=== PATIENT | male | born 1935 | race Caucasian/White ===

== ENCOUNTER 2018-07-06 15:57 | Observation (INO) | payer MEDICARE ==
[2018-07-06] MEDS ORDERED: Sodium Chloride 0.9% 1000 ML 1,000 ML IV SCH ×2 (16:45→18:28)
--- NOTE | 2018-07-06 16:45 | ERPHSYRPT ---
- History of Present Illness Time Seen by Provider: 07/06/18 16:30 Source: patient, family Exam Limitations: clinical condition Patient Subjective Stated Complaint: PT states "I was trying to get my truck to start but I cannot remember why.". Pt daughter in law states "He was in his garage with his truck running and the door closed. He was supposed to go see Dr. Marrero at 2 pm and he did not make it to it. He does have a little dementia. He has had a stroke in the past and he is off his coumadin due to a procedure he had in [facility]. He was perfectly fine last night." Triage Nursing Assessment: Pt last seen his normal self at 2100 last night. Pt alert and confused, able to speak in clear full sentences. PT in no apparent respiratory distress noted. Pt has intermittant forceful cough. Physician History: This is an 83-year-old white male with history of CVA, myocardial infarction, cataracts, coronary artery disease, hyperlipidemia, high blood pressure, esophageal erosions, esophageal cancer, Patient is brought by his of son with complaints that the patient was found in his garage with his truck running he had been there for unknown period of time family feel like the patient is confused. Patient has states apparently that he could not get his garage door opened and family are unsure as to how long the patient was in his garage. On my examination patient appears to be somewhat pleasantly confused he is alert he is oriented to himself. He is not oriented to place or time. He has full range of motion to all extremities speech is normal there are no obvious focal deficits. Past medical history includes myocardial infarction, CVA, cataracts, coronary artery disease, hyperlipidemia, high blood pressure, esophageal erosion, esophageal cancer. Past surgical history includes carotid endarterectomy, cardiac stent, cardiac catheter, mastectomy, tonsillectomy and adenoidectomy, and appendectomy Social history former smoker one to 2 alcoholic beverages a day. last time patient was noted to be normal 9:00 last night. Timing/Duration: today Severity: moderate Modifying Factors: Improves With: other (patient in garage with truck running) Associated Symptoms: other (Confusion), No nausea, No vomiting, No abdominal pain, No shortness of breath, No heartburn, No diaphoresis, No cough, No chills , No chest pain, No fever, No headaches, No loss of appetite, No malaise, No rash, No syncope, No seizure, No weakness Allergies/Adverse Reactions: No Known Drug Allergies Allergy (Verified 11/11/13 11:03) Home Medications: Aspirin 81 gm Chew [Baby Aspirin 81 mg Chew] 81 mg PO DAILY 09/10/13 [ History] Clopidogrel Bisulfate 75 mg [PLAVIX 75 MG Tablet] 75 mg PO DAILY 09/10/13 [History] Simvastatin [Zocor] 20 mg PO DAILY 09/10/13 [History] Tamsulosin HCl 0.4 mg [Flomax 0.4 MG] 0.4 mg PO DAILY 11/11/13 [History] Amlodipine Besylate 10 mg PO BID 07/06/18 [History] Omeprazole 40 mg PO DAILY 07/06/18 [History] Hx Tetanus, Diphtheria Vaccination/Date Given: No Hx Influenza Vaccination/Date Given: Yes Hx Pneumococcal Vaccination/Date Given: No Immunizations Up to Date: Yes - Review of Systems Constitutional: No Fever, No Chills Eyes: No Symptoms Ears, Nose, & Throat: No Symptoms Respiratory: No Cough, No Dyspnea Cardiac: No Chest Pain, No Edema, No Syncope Abdominal/Gastrointestinal: No Abdominal Pain, No Nausea, No Vomiting, No Diarrhea Genitourinary Symptoms: No Dysuria Musculoskeletal: No Back Pain, No Neck Pain Skin: No Rash Neurological: Other (confusion), No Dizziness, No Focal Weakness, No Gait Changes, No Headache, No Irritability, No Lethargy, No Paralysis, No Parasthesia , No Seizure, No Sensory Changes, No Speech Changes, No Tics, No Tremors, No Vertigo Psychological: No Symptoms Endocrine: No Symptoms All Other Systems: Reviewed and Negative - Past Medical History Pertinent Past Medical History: Yes Neurological History: Stroke ENT History: Cataracts Cardiac History: Coronary Artery Disease, High Cholesterol, Hypertension Respiratory History: No Pertinent History Endocrine Medical History: No Pertinent History Musculoskeletal History: No Pertinent History GI Medical History: No Pertinent History History: No Pertinent History Psycho-Social History: No Pertinent History Male Reproductive Disorders: No Pertinent History Other Medical History: esophogeal erosion. esophogeal cancer - Past Surgical History Past Surgical History: Yes Neuro Surgical History: Neurological Surgery Cardiac: Cardiac Catheterization, Cardiac Stent Respiratory: No Pertinent History Gastrointestinal: No Pertinent History Genitourinary: No Pertinent History Musculoskeletal: No Pertinent History Male Surgical History: Vasectomy Other Surgical History: T&A as a child, stroke in 2006,colonoscopy. egd - Social History Smoking Status: Former smoker Exposure to second hand smoke: Yes Drug Use: none Patient Lives Alone: No - Nursing Vital Signs Nursing Vital Signs: Initial Vital Signs Temperature 99.7 F 07/06/18 16:09 Pulse Rate 79 07/06/18 16:09 Respiratory Rate 18 07/06/18 16:09 Blood Pressure 160/114 07/06/18 16:09 O2 Sat by Pulse Oximetry 97 07/06/18 16:09 Pain Scale Pain Intensity 0 - Physical Exam General Appearance: no apparent distress, alert Eye Exam: PERRL/EOMI, eyes nml inspection, other (fundi are unremarkable) Neck Exam: normal inspection, non-tender, supple, full range of motion Respiratory Exam: normal breath sounds, lungs clear, No respiratory distress Cardiovascular Exam: regular rate/rhythm, normal heart sounds, normal peripheral pulses, capillary refill <2 sec Gastrointestinal/Abdomen Exam: soft, normal bowel sounds, No tenderness, No mass Back Exam: normal inspection Extremity Exam: normal inspection, normal range of motion, pelvis stable Neurologic Exam: alert, cooperative, steel heater II-XII nml as tested, sensation nml, confusion, other (patient is alert, oriented to himself, cranial nerves II throughXII intact, speech normal, automotive instructor equal 5 over 5 normal finger to nose with mild tremor no drift, no facial droop full range of motion to all extremities sensation intact all extremities, GCS equals 15), No oriented x 3 ( oriented to person), No sensory deficit, No agitation, No uncooperative, No intoxicated appearance, No depressed mood/affect, No motor weakness, No facial droop, No slurred speech, No aphasia, No dysarthria, No abnormal steel heater II-XII Skin Exam: normal color, warm, dry, No rash SpO2 Interpretation: normal (97%) SpO2: 97 - Course Nursing assessment & vital signs reviewed: Yes EKG Interpreted by Me: RATE (101 bpm), Sinus Rhythm, Other (EKG: Impression: Sinus tachycardia 101 bpmS< AXISI/QIII pattern, no acute ST or T wave changes noted, compared to October 19, 2013) - Radiology Exams Chest X-ray Interpretation: Discussed w/ radiologist (chest x-ray: Impression: Stable nonacute chest with chronic features) - CT Exams Head CT Interpretation: Discussed w/radiologist (CT head: Impression: 1. New finding remote-appearing left cerebellar infarct and remote left thalamic lacunar infarct. 2. Stable atrophy, degenerative microvascular ischemia, an old left parietal infarct, 3. No acute intra-cranial abnormalities. 4. Incidental paranasal sinus disease.) Ordered Tests: Active Orders 24 hr Category Date Time Status Head Baker STAT Care 07/06/18 16:38 Active EKG-ER Only STAT Care 07/06/18 16:38 Active IV Insertion STAT Care 07/06/18 16:38 Active Pulse Oximetry (ED) STAT Care 07/06/18 16:38 Active CHEST 1 VIEW (PORTABLE) Stat Exams 07/06/18 16:38 Completed HEAD WITHOUT CONTRAST [CT] Stat Exams 07/06/18 16:38 Completed CBC W DIFF Stat Lab 07/06/18 16:30 Completed CMP Stat Lab 07/06/18 16:30 Completed CULTURE,URINE Stat Lab 07/06/18 17:39 Received ETHYL ALCOHOL Stat Lab 07/06/18 18:06 Ordered PROTIME WITH INR Stat Lab 07/06/18 16:30 Completed PTT Stat Lab 07/06/18 16:30 Completed TROPONIN Q3H Lab 07/06/18 16:30 Completed TROPONIN Q3H Lab 07/06/18 19:45 Ordered TROPONIN Q3H Lab 07/06/18 22:45 Ordered TROPONIN Q3H Lab 07/07/18 01:45 Ordered TROPONIN Q3H Lab 07/07/18 04:45 Ordered UA W/RFX UR CULTURE Stat Lab 07/06/18 17:39 Completed VENOUS BLOOD GAS Urgent Lab 07/06/18 16:38 Completed Medication Summary Generic Name Dose Route Start Last Admin Trade Name Freq PRN Reason Stop Dose Admin Sodium Chloride 1,000 mls @ 100 mls/hr 07/06/18 16:45 07/06/18 16:55 Sodium Chloride 0.9% 1000 Ml IV 08/05/18 16:44 100 mls/hr .Q10H JOANNA Administration Lab/Rad Data: Laboratory Result Diagrams 07/06/18 16:30 07/06/18 16:30 Laboratory Results 03/11/19 03/11/19 03/11/19 Range/Units 17:39 16:38 16:30 WBC (4.0-10.5) K/mm3 RBC (4.1-5.6) M/mm3 Hgb (12.5-18.0) gm/dl Hct (42-50) % MCV (78-100) fl MCH (26-32) pg MCHC (32-36) g/dl RDW (11.5-14.0) % Plt Count (150-450) K/mm3 MPV (6-9.5) fl Gran % (36.0-66.0) % Eos # (Auto) (0-0.5) Absolute Lymphs (auto) (1.0-4.6) Absolute Monos (auto) (0.0-1.3) Lymphocytes % (24.0-44.0) % Monocytes % (0.0-12.0) % Eosinophils % (0.00-5.0) % Basophils % (0.0-0.4) % Absolute Granulocytes (1.4-6.9) Basophils # (0-0.4) PT (8.83-12.87) SECONDS INR (0.8-3.0) APTT (24.1-36.1) SECONDS pO2/FiO2 Ratio 21.0 % VBG pH 7.37 (7.32-7.42) VBG pCO2 at Pat Temp 56 H (42-55) mm/Hg VBG pO2 at Pat Temp 23 L (25-40) mm/Hg VBG HCO3 32.4 H* (22-28) meq/L VBG O2 Sat (Greg) 48.0 L (95-100) VBG Base Excess 5.1 H (-2.0-2.0) VBG Hemoglobin 16.6 VBG Carboxyhemoglobin 4.0 (0.0-6.9) % T HGB POC Potassium 3.9 (3.5-5.1) Sodium (137-145) mmol/L Potassium (3.5-5.1) mmol/L Chloride (98-107) mmol/L Carbon Dioxide (22-30) mmol/L Anion Gap (5-15) MEQ/L BUN (9-20) mg/dL Creatinine (0.66-1.25) mg/dL Estimated GFR ML/MIN Glucose (74-106) mg/dL Calcium (8.4-10.2) mg/dL Total Bilirubin (0.2-1.3) mg/dL AST (17-59) U/L ALT (0-50) U/L Alkaline Phosphatase (38-126) U/L Troponin I < 0.012 (0.000-0.034) ng/mL Serum Total Protein (6.3-8.2) g/dL Albumin (3.5-5.0) g/dL Urine Color YELLOW (YELLOW) Urine Appearance CLEAR (CLEAR) Urine pH 7.0 (5-6) Ur Specific Whitney 1.016 (1.005-1.025) Urine Protein 30 (Negative) Urine Ketones NEGATIVE (NEGATIVE) Urine Blood SMALL (0-5) Travis/ul Urine Nitrite NEGATIVE (NEGATIVE) Urine Bilirubin NEGATIVE (NEGATIVE) Urine Urobilinogen NEGATIVE (0-1) mg/dL Ur Leukocyte Esterase NEGATIVE (NEGATIVE) Urine WBC (Auto) NONE (0-5) /HPF Urine RBC (Auto) 3-5 (0-2) /HPF U Epithel Cells (Auto) NONE (FEW) /HPF Urine Bacteria (Auto) NONE (NEGATIVE) /HPF Urine Mucus (Auto) SLIGHT (NEGATIVE) /HPF Urine Culture Reflexed YES (NO) Urine Glucose NEGATIVE (NEGATIVE) mg/dL 07/06/18 07/06/18 07/06/18 Range/Units 16:30 16:30 16:30 WBC 12.2 H (4.0-10.5) K/mm3 RBC 5.24 (4.1-5.6) M/mm3 Hgb 15.5 (12.5-18.0) gm/dl Hct 47.5 (42-50) % MCV 90.6 (78-100) fl MCH 29.6 (26-32) pg MCHC 32.6 (32-36) g/dl RDW 14.6 H (11.5-14.0) % Plt Count 155 (150-450) K/mm3 MPV 11.7 H (6-9.5) fl Gran % 86.9 H (36.0-66.0) % Eos # (Auto) 0.08 (0-0.5) Absolute Lymphs (auto) 0.77 L (1.0-4.6) Absolute Monos (auto) 0.74 (0.0-1.3) Lymphocytes % 6.3 L (24.0-44.0) % Monocytes % 6.0 (0.0-12.0) % Eosinophils % 0.7 (0.00-5.0) % Basophils % 0.1 (0.0-0.4) % Absolute Granulocytes 10.64 H (1.4-6.9) Basophils # 0.01 (0-0.4) PT 12.1 (8.83-12.87) SECONDS INR 1.04 (0.8-3.0) APTT 29.5 (24.1-36.1) SECONDS pO2/FiO2 Ratio % VBG pH (7.32-7.42) VBG pCO2 at Pat Temp (42-55) mm/Hg VBG pO2 at Pat Temp (25-40) mm/Hg VBG HCO3 (22-28) meq/L VBG O2 Sat (Greg) (95-100) VBG Base Excess (-2.0-2.0) VBG Hemoglobin VBG Carboxyhemoglobin (0.0-6.9) % T HGB POC Potassium (3.5-5.1) Sodium 142 (137-145) mmol/L Potassium 3.9 (3.5-5.1) mmol/L Chloride 101 (98-107) mmol/L Carbon Dioxide 30 (22-30) mmol/L Anion Gap 14.7 (5-15) MEQ/L BUN 20 (9-20) mg/dL Creatinine 0.92 (0.66-1.25) mg/dL Estimated GFR > 60.0 ML/MIN Glucose 106 (74-106) mg/dL Calcium 9.6 (8.4-10.2) mg/dL Total Bilirubin 1.00 (0.2-1.3) mg/dL AST 19 (17-59) U/L ALT 13 (0-50) U/L Alkaline Phosphatase 125 (38-126) U/L Troponin I (0.000-0.034) ng/mL Serum Total Protein 7.7 (6.3-8.2) g/dL Albumin 4.7 (3.5-5.0) g/dL Urine Color (YELLOW) Urine Appearance (CLEAR) Urine pH (5-6) Ur Specific Whitney (1.005-1.025) Urine Protein (Negative) Urine Ketones (NEGATIVE) Urine Blood (0-5) Travis/ul Urine Nitrite (NEGATIVE) Urine Bilirubin (NEGATIVE) Urine Urobilinogen (0-1) mg/dL Ur Leukocyte Esterase (NEGATIVE) Urine WBC (Auto) (0-5) /HPF Urine RBC (Auto) (0-2) /HPF U Epithel Cells (Auto) (FEW) /HPF Urine Bacteria (Auto) (NEGATIVE) /HPF Urine Mucus (Auto) (NEGATIVE) /HPF Urine Culture Reflexed (NO) Urine Glucose (NEGATIVE) mg/dL - Progress Progress: improved Progress Note: 07/06/18 16:47 83-year-old white male with history of CVA, myocardial infarction, cataracts, coronary artery disease, hyperlipidemia, high blood pressure, esophageal erosion , esophageal cancer He is brought by his family patient apparently was found in the garage with the garage door down in his truck running the patient apparently had been trying to get out possibly to go to a doctor's appointment but apparently could not get out of of the garage and apparently had been in the garage for unknown period of time with the motor running. The patient's family states that the patient seems to be somewhat confused he has somewhat of a poor memory and he replies and looking at them for answers to many questions he is not oriented to place he states he thinks he is in [place] he cannot tell me what month it is or what year it is. He does know who he is he is very pleasant and cooperative to examination. Neurologic examination memory as noted above patient has no facial droop, tongue does not deviate speech is normal. Patient has normal finger to nose with the exception of some tremor he does not have pronator drift. Face Boss are equal and symmetrical 5 over 5 he has full range of motion to all extremities sensation is intact to all extremities Hayward Coma Scale 14. I have ordered CT had CBC CMP troponin EKG also venous gases to rule out carbon monoxide poisoning. Patient is noted to have a mildly elevated blood pressure will monitor. 07/06/18 17:[address] of the head shows impression 1. New finding remote-appearing left cerebellar infarct and remarkable left for Lamictal lacunar infarct. 2. Stable atrophy, degenerative microvascular ischemia and old left parietal infarct. 3. No acute intracranial abnormalities. 4. Incidental paranasal sinus disease Patient's CBC white blood cell 12.2 hemoglobin 15.5 hematocrit 47.5 platelets 155 INR is 1.04 patient was taken off of his Coumadin yesterday for a procedure patient's venous gases show pH of 7.37 PCO2 56, carboxyhemoglobin 4.0 Chemistry sodium 142 potassium 3.9 chloride 101 bicarbonate 30 BUN 20 creatinine 0.92 glucose 106 Troponin is pending urine is pending EKG is pending Chest x-ray stable non-acute chest with chronic features. Patient did have mild increased blood pressure. I've discussed patient's case with Dr. Marrero he does not feel that patient needs telemetry neurology consult he feels that patient has some developing dementia. Will plan on placing patient on observation telemetry continuing troponins obtaining every 4 hours neuro checks Once urinalysis troponin and EKG are available. 07/06/18 18:06 The patient's urinalysis and troponin within normal limits EKG sinus tachycardia 94 bpm axisSI/QIII pattern no acute ST or T wave changes. Patient's blood pressure is coming down. Will go ahead and place patient on observation. Diagnosis 1. Mental status change. Confusion. Hypertension. Will avoid overtreating hypertension at this point to facilitate further observation and neuro checks. I have added on an alcohol level and this is pending. - Departure Time of Disposition: 18:09 Departure Disposition: Observation Clinical Impression: Confusion Change in mental status Qualifiers: Altered mental status type: unspecified Qualified Code(s): R41.82 - Altered mental status, unspecified Hypertension Qualifiers: Hypertension type: unspecified Qualified Code(s): I10 - Essential (primary) hypertension Condition: Fair Critical Care Time: No Referrals: IRON MARRERO [Primary Care Provider] -
[2018-07-06 16:47] LABS: VBG BASE EXCESS 5.1 (-2.0-2.0); VBG HCO3- 32.4 meq/L (22-28); VBG HEMOGLOBIN 16.6; VBG POTASSIUM 3.9 (3.5-5.1); VBG pH 7.37 (7.32-7.42)
[2018-07-06 16:47] LABS: BASOPHIL % 0.1 % (0.0-0.4); Basophil (Absolute #) 0.01 (0-0.4); Eosinophil % 0.7 % (0.00-5.0); Eosinophil (Absolute #) 0.08 (0-0.5); Granulocyte Absolute (ANC) 10.64 (1.4-6.9); Granulocytes % 86.9 % (36.0-66.0); Hematocrit 47.5 % (42-50); Hemoglobin 15.5 gm/dl (12.5-18.0); INR 1.04 (0.8-3.0); Lymphocyte (Absolute #) 0.77 (1.0-4.6); Lymphocytes % 6.3 % (24.0-44.0); Mean Cell Volume 90.6 fl (78-100); Mean Corpuscular Hemoglobin 29.6 pg (26-32); Mean Corpuscular Hgb Concent. 32.6 g/dl (32-36); Mean Platelet Volume 11.7 fl (6-9.5); Monocyte (Absolute #) 0.74 (0.0-1.3); PROTIME 12.1 SECONDS (8.83-12.87); Platelet Count 155 K/mm3 (150-450); Red Blood Count 5.24 M/mm3 (4.1-5.6); Red Cell Distribution Width 14.6 % (11.5-14.0); White Blood Count 12.2 K/mm3 (4.0-10.5)
[2018-07-06] MEDS ORDERED: Sodium Chloride 0.9% 1000 ML 1,000 ML ONE (16:47)
[2018-07-06 16:50] LABS: PTT 29.5 SECONDS (24.1-36.1)
[2018-07-06 16:52] LABS: ALBUMIN 4.7 g/dL (3.5-5.0); ALKALINE PHOSPHATASE 125 U/L (38-126); ANION GAP 14.7 MEQ/L (5-15); BLOOD UREA NITROGEN 20 mg/dL (9-20); CHLORIDE 101 mmol/L (98-107); Calcium 9.6 mg/dL (8.4-10.2); Carbon Dioxide 30 mmol/L (22-30); Creatinine 1 0.92 mg/dL (0.66-1.25); Glucose 106 mg/dL (74-106); Potassium 3.9 mmol/L (3.5-5.1); SGOT/AST 19 U/L (17-59); SGPT/ALT 13 U/L (0-50); SODIUM 142 mmol/L (137-145); Total Protein 7.7 g/dL (6.3-8.2)
--- NOTE | 2018-07-06 17:06 | XRAY ---
Indication: Cough. Confusion. Comparison: July 19, 2017. Portable chest remains clear with incidental CT proven right lung calcified pleural plaquing. Heart and mediastinal structures within normal limits. Descending aorta remains tortuous. Again focal eventration of the right hemidiaphragm. Bony thorax intact again with mild degenerative changes. Impression: Stable nonacute chest with chronic features.
--- NOTE | 2018-07-06 17:08 | XRAY ---
Indication: Confusion. History of stroke. Multiple contiguous axial images obtained through the head without contrast. Comparison: April 16, 2006. Stable age-appropriate global atrophy, mild periventricular degenerative microvascular ischemia bilaterally, and old left anterior parietal infarct. New finding remote appearing small left cerebellar infarct and remote left thalamic lacunar infarct. No acute intracranial hemorrhage, abnormal extra-axial fluid collection, or mass effect. Fourth ventricle is midline. Bony calvarium intact. Mild mucosal thickening of both ethmoid sinuses. Mastoid air cells are clear. Impression: 1. New finding remote appearing left cerebellar infarct and remote left thalamic lacunar infarct. 2. Stable atrophy, degenerative microvascular ischemia, and old left parietal infarct. 3. No acute intracranial abnormalities. 4. Incidental paranasal sinus disease. CTDI 69.79
[2018-07-06 17:49] LABS: Appearance CLEAR (CLEAR); Bilirubin NEGATIVE (NEGATIVE); Blood SMALL Ery/ul (0-5); Glucose NEGATIVE (NEGATIVE); Ketones NEGATIVE (NEGATIVE); Leukocyte Esterase NEGATIVE (NEGATIVE); Mucus SLIGHT /HPF (NEGATIVE); Nitrite NEGATIVE (NEGATIVE); Protein,Urine Dip 30 (Negative); Specific Gravity 1.016 (1.005-1.025); Urobilinogen NEGATIVE mg/dL (0-1)
[2018-07-06] MEDS ORDERED: ROCEPHIN 1 Gm-D5w 50 ml Bag** 1 G/50 ML IVPB IV SCH (22:00)
[2018-07-06] MEDS ORDERED: NORVASC 5 MG PO SCH (22:00)
[2018-07-06] MEDS: Protonix 40MG Tablet PO SCH (22:06)
[2018-07-06] MEDS: TYLENOL 325 MG PO PRN (22:06)
[2018-07-06 22:42] LABS: INFLUENZA A NEGATIVE (NEGATIVE); INFLUENZA B NEGATIVE (NEGATIVE); RESPIRATORY SYNCTIAL VIRUS NEGATIVE (Negative)
[2018-07-06] MEDS ORDERED: Zithromax 500 MG/ 250 ML NaCl Premix 500 MG/250 ML IVPB IV SCH (23:00)
[2018-07-07 05:51] LABS: BASOPHIL % 0.2 % (0.0-0.4); Basophil (Absolute #) 0.02 (0-0.4); Eosinophil % 0.7 % (0.00-5.0); Eosinophil (Absolute #) 0.08 (0-0.5); Granulocyte Absolute (ANC) 9.77 (1.4-6.9); Granulocytes % 84.9 % (36.0-66.0); Hematocrit 45.4 % (42-50); Hemoglobin 14.6 gm/dl (12.5-18.0); Lymphocyte (Absolute #) 0.72 (1.0-4.6); Lymphocytes % 6.3 % (24.0-44.0); Mean Cell Volume 90.8 fl (78-100); Mean Corpuscular Hemoglobin 29.2 pg (26-32); Mean Corpuscular Hgb Concent. 32.2 g/dl (32-36); Mean Platelet Volume 12.1 fl (6-9.5); Monocyte (Absolute #) 0.91 (0.0-1.3); Monocytes % 7.9 % (0.0-12.0); Platelet Count 128 K/mm3 (150-450); Red Cell Distribution Width 14.8 % (11.5-14.0); White Blood Count 11.5 K/mm3 (4.0-10.5)
[2018-07-07 06:08] LABS: ALKALINE PHOSPHATASE 93 U/L (38-126); ANION GAP 11.5 MEQ/L (5-15); BLOOD UREA NITROGEN 18 mg/dL (9-20); CHLORIDE 104 mmol/L (98-107); Calcium 8.7 mg/dL (8.4-10.2); Carbon Dioxide 29 mmol/L (22-30); Creatinine 1 0.95 mg/dL (0.66-1.25); Glucose 103 mg/dL (74-106); Potassium 3.7 mmol/L (3.5-5.1); SGOT/AST 18 U/L (17-59); SGPT/ALT 12 U/L (0-50); SODIUM 141 mmol/L (137-145); Total Protein 6.9 g/dL (6.3-8.2)
[2018-07-07] MEDS: TYLENOL 325 MG PO PRN (08:20)
[2018-07-07] MEDS: Protonix 40MG Tablet PO SCH (09:32)
[2018-07-07] MEDS ORDERED: PLAVIX 75 MG Tablet PO SCH (10:00)
[2018-07-07] MEDS ORDERED: Flomax 0.4 MG PO SCH (10:00)
[2018-07-07 12:27] VITALS: BP 132/72; PULSE 81; O2SAT 97
[2018-07-07] MEDS ORDERED: Sodium Chloride 0.9% 10 ML FLUSH Syringe IV SCH (14:00)
[2018-07-07] MEDS ORDERED: Zithromax 500 MG/ 250 ML NaCl Premix 500 MG/250 ML IVPB IV SCH (22:00)
[2018-07-07] MEDS ORDERED: ROCEPHIN 1 Gm-D5w 50 ml Bag** 1 G/50 ML IVPB IV SCH (22:00)
== END 2018-07-07 17:00 | disposition home or self-care (01) ==
LOC: ED 15:57 → MED SURG 18:21
PROVIDERS: ADMIT Family Medicine; ATTEND Family Medicine
DX: J06.9 Acute upper respiratory infection, unspecified (principal); R41.0 Disorientation, unspecified; I10 Essential (primary) hypertension; C15.9 Malignant neoplasm of esophagus, unspecified; Z79.01 Long term (current) use of anticoagulants; Z79.899 Other long term (current) drug therapy
CPT/HCPCS: 36000; 36415; 70450; 71045; 80053; 81001; 82805; 84484; 85025; 85610; 85730; 87040; 87086; 87631; 93005; 93041; 94762; 96360; 99285; G0378; G0480; 80307; J0456; J0696; A9270-GY

== ENCOUNTER 2019-04-28 10:29 | Emergency (ER) | payer MEDICARE ==
--- NOTE | 2019-04-28 10:55 | ERPHSYRPT ---
- History of Present Illness Time Seen by Provider: 04/28/19 10:55 Source: patient Exam Limitations: no limitations Physician History: The patient is an 83-year-old male who presents with a chief complaint of bleeding from a biopsy site located to the right eye. He reportedly had a skin biopsy performed yesterday for possible melanoma. This is performed at [facility]. Please scheduled follow-up with his primary care provider this Friday for the biopsy results. He states that he awoke this morning and got to the bathroom and noticed that he had blood trickling down his thigh and right leg. He reportedly applied direct pressure to the wound however when the bleeding did not stop he decided to come to the emergency department for further evaluation and management. When he arrived emergency department, the bleeding had resolved. He currently has no additional complaints. Timing/Duration: today, improved Allergies/Adverse Reactions: No Known Drug Allergies Allergy (Verified 04/28/19 11:09) Home Medications: Clopidogrel Bisulfate 75 mg [PLAVIX 75 MG Tablet] 75 mg PO DAILY 09/10/13 [History] Simvastatin [Zocor] 20 mg PO DAILY 09/10/13 [History] Tamsulosin HCl 0.4 mg [Flomax 0.4 MG] 0.4 mg PO DAILY 11/11/13 [History] Omeprazole 40 mg PO BID 07/06/18 [History] Hx Tetanus, Diphtheria Vaccination/Date Given: No Hx Influenza Vaccination/Date Given: Yes Hx Pneumococcal Vaccination/Date Given: No - Review of Systems Constitutional: No Symptoms, No Fever, No Chills Respiratory: No No Symptoms Cardiac: No Chest Pain Skin: Other (Bleeding from biopsy site on R thigh) Psychological: Drug Abuse All Other Systems: Reviewed and Negative - Past Medical History Pertinent Past Medical History: Yes Neurological History: Stroke ENT History: Cataracts Cardiac History: Coronary Artery Disease, High Cholesterol, Hypertension Respiratory History: No Pertinent History Endocrine Medical History: No Pertinent History Musculoskeletal History: No Pertinent History GI Medical History: No Pertinent History History: No Pertinent History Psycho-Social History: No Pertinent History Male Reproductive Disorders: No Pertinent History Other Medical History: esophogeal erosion. esophogeal cancer - Past Surgical History Past Surgical History: Yes Neuro Surgical History: Neurological Surgery Cardiac: Cardiac Catheterization, Cardiac Stent Respiratory: No Pertinent History Gastrointestinal: Appendectomy Genitourinary: No Pertinent History Musculoskeletal: No Pertinent History Male Surgical History: Vasectomy Other Surgical History: T&A as a child, stroke in 2007,colonoscopy. egd - Social History Smoking Status: Former smoker Exposure to second hand smoke: No Drug Use: none Patient Lives Alone: No - Nursing Vital Signs Nursing Vital Signs: Initial Vital Signs Temperature 97.0 F 04/28/19 11:09 Respiratory Rate 18 04/28/19 11:09 Blood Pressure 165/95 04/28/19 11:09 O2 Sat by Pulse Oximetry 97 04/28/19 11:09 Pain Scale Pain Intensity 1 - Physical Exam General Appearance: no apparent distress Eye Exam: PERRL/EOMI Respiratory Exam: normal breath sounds, lungs clear, No chest tenderness, No respiratory distress Cardiovascular Exam: regular rate/rhythm, normal heart sounds, capillary refill <2 sec Back Exam: normal inspection Extremity Exam: other (Small 0.5 cm in diameter superficial wound noted to the anterior right thigh with no active bleeding present. There was no evidence of surrounding infection.) Neurologic Exam: alert, oriented x 3 Skin Exam: normal color, warm, dry, other (Small 0.5 cm in diameter superficial wound noted to the anterior right thigh with no active bleeding present. There was no evidence of surrounding infection.), No rash O2 Delivery: Room Air Ordered Tests: Medication Summary Discontinued Medications Generic Name Dose Route Start Last Admin Trade Name Marloq PRN Reason Stop Dose Admin Bacitracin Zinc 0.9 gm 04/28/19 11:23 04/28/19 11:31 Baciguent Packet TP 04/28/19 11:24 1 gm STAT ONE Administration Bacitracin Zinc Confirm 04/28/19 11:30 Baciguent Packet Administered 04/28/19 11:31 Dose 1 gm .ROUTE .STK-MED ONE - Progress Progress: improved Counseled pt/family regarding: diagnosis, need for follow-up - Departure Departure Disposition: Home Clinical Impression: Postoperative bleeding from incision Condition: Stable Critical Care Time: No Referrals: IRON CARY [Primary Care Provider] - Instructions: Wound Care (DC) Additional Instructions: Please hold your Plavix for the next 48hrs and then resume this medication as prescribed.
[2019-04-28] MEDS ORDERED: BACIGUENT PACKET ONE (11:30)
[2019-04-28] MEDS: BACIGUENT PACKET TP ONE (11:31)
[2019-04-28 11:40] VITALS: BP 177/85; PULSE 56; O2SAT 96
== END 2019-04-28 11:41 | disposition home or self-care (01) ==
LOC: ED 10:29
DX: H59.321 Postprocedural hemorrhage of right eye and adnexa following other procedure (principal); Z79.899 Other long term (current) drug therapy; I25.10 Atherosclerotic heart disease of native coronary artery without angina pectoris; I10 Essential (primary) hypertension; E78.00 Pure hypercholesterolemia, unspecified; Z86.73 Personal history of transient ischemic attack (TIA), and cerebral infarction without residual deficits; Z85.01 Personal history of malignant neoplasm of esophagus
CPT/HCPCS: 99283; A9270-GY

== ENCOUNTER 2019-06-27 08:58 | Observation (INO) | payer MEDICARE ==
[2019-06-27] MEDS ORDERED: ANTIVERT 25 MG PO ONE (09:36)
[2019-06-27] MEDS ORDERED: ANTIVERT 25 MG ONE (09:52)
[2019-06-27 09:57] LABS: Absolute Neutrophil Ct (ANC) 5.08 (1.4-6.9); BASOPHIL % 0.3 % (0.0-0.4); Basophil (Absolute #) 0.02 (0-0.4); Eosinophil % 1.8 % (0.00-5.0); Eosinophil (Absolute #) 0.12 (0-0.5); Hematocrit 45.4 % (42-50); Hemoglobin 15.5 gm/dl (12.5-18.0); Lymphocyte (Absolute #) 0.86 (1.0-4.6); Mean Cell Volume 89.7 fl (78-100); Mean Corpuscular Hemoglobin 30.6 pg (26-32); Mean Corpuscular Hgb Concent. 34.1 g/dl (32-36); Mean Platelet Volume 11.2 fl (7.5-11.0); Monocyte (Absolute #) 0.56 (0.0-1.3); Monocytes % 8.4 % (0.0-12.0); Neutrophil % 76.5 % (36.0-66.0); Platelet Count 175 K/mm3 (150-450); Red Blood Count 5.06 M/mm3 (4.1-5.6); Red Cell Distribution Width 14.5 % (11.5-14.0); White Blood Count 6.6 K/mm3 (4.0-10.5)
--- NOTE | 2019-06-27 10:12 | ERPHSYRPT ---
- History of Present Illness Time Seen by Provider: 06/27/19 09:40 Source: patient Patient Subjective Stated Complaint: states has had vomiting intermittently since friday. today on awakening felt dizzy. denies any pain. no vomiting today. Triage Nursing Assessment: to room per w/c. skin w/d, color normal. resp nonlabored. patient assisted per one to cot. was able to stand with minimal assist to do orthostatic vital signs. a/o time four. has bandage to left forearm. son states he thinks patient must have fallen earlier in the week but patient doesn't remember if he fell. howell without difficulty. Physician History: Patient is an 84-year-old male who presents to our ED with complaints of vomiting and dizziness. Patient has been vomiting intermittently since Friday, 2 days. Vomiting is nonbloody nonbilious. This morning patient awoke feeling dizzy. No associated numbness tingling or weakness. Patient advises that he has history of stroke. No associated chest pain or shortness of breath. No diaphoresis. Symptoms are progressive. No specific worsening improving factors. Patient voices no other complaints at this time. Timing/Duration: day(s) (2 days) Severity: moderate Character of Deficits: none Allergies/Adverse Reactions: No Known Drug Allergies Allergy (Verified 06/27/19 09:36) Home Medications: Clopidogrel Bisulfate 75 mg [PLAVIX 75 MG Tablet] 75 mg PO DAILY 09/10/13 [History] Tamsulosin HCl 0.4 mg [Flomax 0.4 MG] 0.4 mg PO DAILY 11/11/13 [History] Amlodipine Besylate 5 mg [Norvasc 5 mg] 5 mg PO DAILY 06/27/19 [History] Hx Tetanus, Diphtheria Vaccination/Date Given: No Hx Influenza Vaccination/Date Given: Yes Hx Pneumococcal Vaccination/Date Given: Yes - Review of Systems Constitutional: No Fever, No Chills Eyes: No Symptoms Ears, Nose, & Throat: No Symptoms Respiratory: No Symptoms, No Cough, No Dyspnea Cardiac: No Symptoms, No Chest Pain, No Edema, No Syncope Abdominal/Gastrointestinal: No Abdominal Pain, No Nausea, No Vomiting, No Diarrhea Genitourinary Symptoms: No Symptoms, No Dysuria Musculoskeletal: No Symptoms, No Back Pain, No Neck Pain Skin: No Symptoms, No Rash Neurological: Dizziness, No Focal Weakness, No Headache, No Sensory Changes Psychological: No Symptoms Endocrine: No Symptoms All Other Systems: Reviewed and Negative - Past Medical History Pertinent Past Medical History: Yes Neurological History: Stroke ENT History: Cataracts Cardiac History: Coronary Artery Disease, High Cholesterol, Hypertension Respiratory History: No Pertinent History Endocrine Medical History: No Pertinent History Musculoskeletal History: No Pertinent History GI Medical History: No Pertinent History History: No Pertinent History Psycho-Social History: No Pertinent History Male Reproductive Disorders: No Pertinent History Other Medical History: esophogeal erosion. esophogeal cancer. melanoma - Past Surgical History Past Surgical History: Yes Neuro Surgical History: No Pertinent History Cardiac: Cardiac Catheterization, Cardiac Stent Respiratory: No Pertinent History Gastrointestinal: Appendectomy Genitourinary: No Pertinent History Musculoskeletal: No Pertinent History Male Surgical History: Vasectomy Other Surgical History: T&A as a child, stroke in 2006,colonoscopy. egd - Social History Smoking Status: Former smoker Exposure to second hand smoke: Yes Drug Use: none Patient Lives Alone: No - Nursing Vital Signs Nursing Vital Signs: Initial Vital Signs Temperature 97.3 F 06/27/19 09:30 Pulse Rate 54 L 06/27/19 09:30 Respiratory Rate 16 06/27/19 09:30 Blood Pressure 180/76 06/27/19 09:30 O2 Sat by Pulse Oximetry 96 06/27/19 09:30 Pain Scale Pain Intensity 0 - [place] Coma Scale Best Eye Response ([place]): (4) open spontaneously Best Verbal Response ([place]): (5) oriented Best Motor Response ([place]): (6) obeys commands Valerie Total: 15 - Physical Exam General Appearance: no apparent distress, alert Eye Exam: bilateral eye: normal inspection, PERRL, EOMI Ears, Nose, Throat Exam: normal ENT inspection, moist mucous membranes Neck Exam: normal inspection, non-tender, supple Respiratory: normal breath sounds, lungs clear, airway intact, No respiratory distress Cardiovascular: regular rate/rhythm, No edema Gastrointestinal: soft, No tenderness, No distention Back Exam: normal inspection Extremity Exam: normal inspection, No pedal edema Peripheral Pulses: dorsalis-pedis (R): 1+, dorsalis-pedis (L): 1+ Mental Status: alert, oriented x 3 registered travel nurse Exam: normal hearing, normal speech, PERRL, tongue midline, No abnormal eye position, No abnormal gag reflex, No abnormal pupil position, No abnormal speech , No facial asymmetry, No facial droop, No facial paresthesias, No facial weakness, No gaze palsy, No hearing deficit (R), No hearing deficit (L), No tongue deviation to R Coordination/Gait: normal finger to nose, normal gait Motor/Sensory: no motor deficit Skin Exam: normal color, warm, dry, No rash SpO2 Interpretation: normal SpO2: 96 - Course EKG Interpreted by Me: Sinus Arjun, NORMAL AXIS, NORMAL QRS - Radiology Exams Chest X-ray Interpretation: Interpreted by me (No acute findings on chest x-ray. No pneumonia. No consolidations or infiltrates.) - CT Exams Head CT Interpretation: Negative (Atrophy small vessel ischemic change and encephalomalacia, maxillary sinus mucoperiosteal disease and a 7 mm polypoid lesion in the left maxillary sinus opacification of the right ethmoid air cells. ) Ordered Tests: Active Orders 24 hr Category Date Time Status Time Cycle Operator STAT Care 06/27/19 09:36 Active EKG-ER Only STAT Care 06/27/19 09:36 Active IV Insertion STAT Care 06/27/19 09:36 Active CHEST 1 VIEW (PORTABLE) Stat Exams 06/27/19 09:36 Taken HEAD WITHOUT CONTRAST [CT] Stat Exams 06/27/19 10:12 Taken CBC W DIFF Stat Lab 06/27/19 09:52 Completed CMP Stat Lab 06/27/19 09:52 Completed TROPONIN Q3H Lab 06/27/19 09:52 Completed TROPONIN Q3H Lab 06/27/19 12:45 Ordered TROPONIN Q3H Lab 06/27/19 15:45 Ordered TROPONIN Q3H Lab 06/27/19 18:45 Ordered TROPONIN Q3H Lab 06/27/19 21:45 Ordered UA W/RFX UR CULTURE Stat Lab 06/27/19 09:36 Ordered Transfer Order Routine Transfer 06/27/19 Ordered Medication Summary Discontinued Medications Generic Name Dose Route Start Last Admin Trade Name Freq PRN Reason Stop Dose Admin Sodium Chloride 1,000 mls @ 999 mls/hr 06/27/19 10:56 06/27/19 12:28 Sodium Chloride 0.9% 1000 Ml IV 06/27/19 11:56 Infused .Q1H1M STA Infusion Sodium Chloride Confirm 06/27/19 10:57 Sodium Chloride 0.9% 1000 Ml Administered 06/27/19 10:58 Dose 1,000 mls @ ud .ROUTE .[facility] ONE Meclizine HCl 25 mg 06/27/19 09:36 06/27/19 09:52 Antivert 25 Mg PO 06/27/19 09:37 25 mg STAT ONE Administration Meclizine HCl Confirm 06/27/19 09:52 Antivert 25 Mg Administered 06/27/19 09:53 Dose 25 mg .ROUTE .[facility] Lab/Rad Data: Laboratory Result Diagrams 06/27/19 09:52 06/27/19 09:52 Laboratory Results 06/27/19 06/27/19 06/27/19 Range/Units 09:52 09:52 09:52 WBC 6.6 (4.0-10.5) K/mm3 RBC 5.06 (4.1-5.6) M/mm3 Hgb 15.5 (12.5-18.0) gm/dl Hct 45.4 (42-50) % MCV 89.7 (78-100) fl MCH 30.6 (26-32) pg MCHC 34.1 (32-36) g/dl RDW 14.5 H (11.5-14.0) % Plt Count 175 (150-450) K/mm3 MPV 11.2 H (7.5-11.0) fl Gran % 76.5 H (36.0-66.0) % Eos # (Auto) 0.12 (0-0.5) Absolute Lymphs (auto) 0.86 L (1.0-4.6) Absolute Monos (auto) 0.56 (0.0-1.3) Lymphocytes % 13.0 L (24.0-44.0) % Monocytes % 8.4 (0.0-12.0) % Eosinophils % 1.8 (0.00-5.0) % Basophils % 0.3 (0.0-0.4) % Absolute Granulocytes 5.08 (1.4-6.9) Basophils # 0.02 (0-0.4) Sodium 143 (137-145) mmol/L Potassium 4.0 (3.5-5.1) mmol/L Chloride 107 (98-107) mmol/L Carbon Dioxide 30 (22-30) mmol/L Anion Gap 10.1 (5-15) MEQ/L BUN 23 H (9-20) mg/dL Creatinine 0.88 (0.66-1.25) mg/dL Estimated GFR > 60.0 ML/MIN Glucose 110 H (74-106) mg/dL Calcium 9.3 (8.4-10.2) mg/dL Total Bilirubin 1.10 (0.2-1.3) mg/dL AST 31 (17-59) U/L ALT 13 (0-50) U/L Alkaline Phosphatase 106 (38-126) U/L Troponin I < 0.012 (0.000-0.034) ng/mL Serum Total Protein 7.5 (6.3-8.2) g/dL Albumin 4.4 (3.5-5.0) g/dL - Progress Progress Note: 06/27/19 12:43 Patient reassessed. He remained stable repeat neuro exam is unchanged as compared to his initial exam. Patient's [id number] is head of nursing at [facility]. She feels that patient is still not at his baseline. Case discussed with Dr. Dunaway who accepts admission to observation. Plan of care discussed with patient. He agrees to admission to [facility] for further evaluation and treatment. Discussed with : Reji Will see patient in: hospital (observation) Counseled pt/family regarding: lab results, diagnosis, rad results - Departure Departure Disposition: Observation Clinical Impression: Dizziness, Dehydration, Weakness Condition: Stable Critical Care Time: No Referrals: [facility]ON [facility]ARY [Primary Care Provider] -
[2019-06-27 10:38] LABS: ALBUMIN 4.4 g/dL (3.5-5.0); ALKALINE PHOSPHATASE 106 U/L (38-126); ANION GAP 10.1 MEQ/L (5-15); BLOOD UREA NITROGEN 23 mg/dL (9-20); CHLORIDE 107 mmol/L (98-107); Calcium 9.3 mg/dL (8.4-10.2); Carbon Dioxide 30 mmol/L (22-30); Creatinine 1 0.88 mg/dL (0.66-1.25); Glucose 110 mg/dL (74-106); SGOT/AST 31 U/L (17-59); SGPT/ALT 13 U/L (0-50); SODIUM 143 mmol/L (137-145); Total Protein 7.5 g/dL (6.3-8.2)
[2019-06-27] MEDS ORDERED: Sodium Chloride 0.9% 1000 ML 1,000 ML IV STA (10:56)
[2019-06-27] MEDS ORDERED: Sodium Chloride 0.9% 1000 ML 1,000 ML ONE (10:57)
[2019-06-27 13:06] LABS: Appearance SLIGHTLY CLOUDY (CLEAR); Bilirubin NEGATIVE (NEGATIVE); Blood NEGATIVE Ery/ul (0-5); Epithelial Cells RARE /HPF (FEW); Glucose NEGATIVE (NEGATIVE); Ketones NEGATIVE (NEGATIVE); Leukocyte Esterase NEGATIVE (NEGATIVE); Mucus MODERATE /HPF (NEGATIVE); Nitrite NEGATIVE (NEGATIVE); Protein,Urine Dip 30 (Negative); Specific Gravity 1.023 (1.005-1.025); Urobilinogen NEGATIVE mg/dL (0-1)
[2019-06-27] MEDS ORDERED: IMODIUM 2 MG PO ONE (15:45)
[2019-06-27] MEDS: Flomax 0.4 MG PO SCH (17:14)
[2019-06-27] MEDS: PLAVIX 75 MG Tablet PO SCH (17:14)
[2019-06-27] MEDS: NORVASC 5 MG PO SCH (17:15)
--- NOTE | 2019-06-27 21:04 | XRAY ---
Indication: Dizziness and cough. Comparison: July 06, 2018. Portable apical lordotic chest less inflated with stable right midlung calcified pleural plaquing. Again no focal infiltrate, consolidation, or large effusion. Heart is not enlarged for AP portable technique. 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 Bony thorax intact again with mild degenerative changes. Impression: Continued nonacute chest with chronic features.
--- NOTE | 2019-06-27 21:08 | XRAY ---
Indication: Dizziness. Blood thinner therapy. Multiple contiguous axial images obtained through the head without contrast. Comparison: July 06, 2014. 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 Again no acute intracranial hemorrhage, hydrocephalus, or mass effect. Fourth ventricle is midline. Bony calvarium intact. Mild mucosal thickening right ethmoid sinus. Mastoid air cells are clear. Impression: Stable nonacute senile brain with old infarcts as detailed. No new or acute intracranial abnormalities. Mild right paranasal sinus disease. Comment: Preliminary interpretation was made by [facility]. No critical discrepancy.
[2019-06-28 04:26] VITALS: O2SAT 95
[2019-06-28 04:52] LABS: Absolute Neutrophil Ct (ANC) 3.93 (1.4-6.9); BASOPHIL % 0.3 % (0.0-0.4); Basophil (Absolute #) 0.02 (0-0.4); Eosinophil (Absolute #) 0.23 (0-0.5); Hematocrit 41.7 % (42-50); Hemoglobin 13.7 gm/dl (12.5-18.0); Lymphocyte (Absolute #) 0.99 (1.0-4.6); Lymphocytes % 17.1 % (24.0-44.0); Mean Cell Volume 89.5 fl (78-100); Mean Corpuscular Hemoglobin 29.4 pg (26-32); Mean Corpuscular Hgb Concent. 32.9 g/dl (32-36); Mean Platelet Volume 11.3 fl (7.5-11.0); Monocyte (Absolute #) 0.62 (0.0-1.3); Monocytes % 10.7 % (0.0-12.0); Neutrophil % 67.9 % (36.0-66.0); Platelet Count 155 K/mm3 (150-450); Red Blood Count 4.66 M/mm3 (4.1-5.6); Red Cell Distribution Width 14.1 % (11.5-14.0); White Blood Count 5.8 K/mm3 (4.0-10.5)
[2019-06-28 05:11] LABS: ALBUMIN 3.7 g/dL (3.5-5.0); ALKALINE PHOSPHATASE 89 U/L (38-126); ANION GAP 7.7 MEQ/L (5-15); BLOOD UREA NITROGEN 25 mg/dL (9-20); CHLORIDE 107 mmol/L (98-107); Calcium 8.5 mg/dL (8.4-10.2); Carbon Dioxide 28 mmol/L (22-30); Creatinine 1 0.85 mg/dL (0.66-1.25); Glucose 103 mg/dL (74-106); Potassium 3.4 mmol/L (3.5-5.1); SGOT/AST 24 U/L (17-59); SGPT/ALT 12 U/L (0-50); SODIUM 140 mmol/L (137-145); Total Protein 6.4 g/dL (6.3-8.2)
[2019-06-28 05:13] LABS: TROPONIN < 0.012 ng/mL (0.000-0.034)
[2019-06-28] MEDS ORDERED: ANTIVERT 25 MG PO PRN (09:04)
[2019-06-28] MEDS ORDERED: Sodium Chloride 0.9% 1000 ML 1,000 ML IV SCH (09:30)
[2019-06-28] MEDS: PLAVIX 75 MG Tablet PO SCH (09:49)
[2019-06-28] MEDS: NORVASC 5 MG PO SCH (09:49)
[2019-06-28] MEDS: Flomax 0.4 MG PO SCH (10:40)
[2019-06-28 15:40] VITALS: BP 167/85; PULSE 64
--- NOTE | 2019-06-29 11:09 | SSS ---
DISCHARGE DIAGNOSES: 1) VOMITING. 2) DEHYDRATION. 3) DIZZINESS. 4) HISTORY OF MELANOMA. 5) HISTORY OF ESOPHAGEAL CANCER. HISTORY: The patient is an 84 year-old white male who presented to the hospital with dizziness. He reports initially it was motion-like in nature but now is more just when he gets up he feels like he is going to pass out. The patient was seen in the emergency room and given IV fluids and admitted to the hospital for further evaluation and management. HOSPITAL COURSE: The patient was admitted to the hospital and monitored orthostatic changes, checked and were essentially negative. The patient was feeling much better after admission. We discussed with him getting physical therapy evaluation and getting a walker for his dizziness so he will hopefully not fall. We also discussed with him getting an oncologist given his malignant melanoma which he has not done presently. He does have remote history of esophageal cancer already. The patient when he took food okay was allowed to discharge home with instructions to follow up in the office in one week. We also discussed getting Hospice care which the family was interested in and will be arranged as an outpatient. The patient will continue to take his usual home medications otherwise and return to the hospital if he has any further problems in the interim.
== END 2019-06-28 15:07 | disposition home or self-care (01) ==
LOC: ED 08:58 → MED SURG 12:58
PROVIDERS: ADMIT Family Medicine; ATTEND Family Medicine
DX: R11.10 Vomiting, unspecified (principal); E86.0 Dehydration; R42 Dizziness and giddiness; Z85.01 Personal history of malignant neoplasm of esophagus; Z85.820 Personal history of malignant melanoma of skin; Z79.01 Long term (current) use of anticoagulants; Z79.899 Other long term (current) drug therapy
CPT/HCPCS: 36415; 70450; 71045; 80053; 81001; 84484; 85025; 93005; 93041; 93268; 94762; 95992; 96360; 97162; 99285; G0378; A9270-GY